=== PATIENT | female | born 1965 | race Caucasian/White ===

== ENCOUNTER → 2025-02-05 | Outpatient (CLI) | payer MEDICAID, SELFPAY ==
--- NOTE | 2025-02-05 10:15 | XR_ITS ---
Examination: Screening digital mammography, bilateral Computer aided detection 3-D breast Tomosynthesis, bilateral Date and time of exam: February 05, 2025 1446 hours Comparison February 01, 2025 INDICATIONS: Abdominal pain post abdominal surgery January 11, 2025, diagnosis cirrhosis Indication: Screening Technique: Nonmagnified MLO, CC views of the breasts to been obtained, reconstructed from 3-D Tomosynthesis images. R2 computer aided detection program utilized for evaluation of suspicious masses and/or abnormal calcifications. 3-D Tomosynthesis images obtained. Findings: Partially visualized pleural fluid Cirrhosis, liver nodular in contour Mild ascites Contracted gallbladder with gallstones Common hepatic duct 6 mm On this study no common bile duct stones Pancreas is not enlarged No hydronephrosis No splenomegaly IMPRESSION: Cirrhosis Cholelithiasis Common hepatic duct 6 mm, no common hepatic or common bile duct stone
== END | disposition home or self-care (01) ==
LOC: CDIM 09:29
PROVIDERS: Referring Provider Physician Assistant; Visit Provider Physician Assistant
DX: Z12.31 Encounter for screening mammogram for malignant neoplasm of breast (principal); R92.8 Other abnormal and inconclusive findings on diagnostic imaging of breast; N64.89 Other specified disorders of breast
CPT/HCPCS: 77063; 77067